=== PATIENT | female | born 1960 ===

== ENCOUNTER 2018-02-21 21:41 | Emergency (ER) | payer OTHER ==
[~2018-02-21] VITALS: Ht 175.3 cm; Wt 95.2 kg
[2018-02-21] MEDS ORDERED: METTREX2.5 PO (23:10)
[2018-02-21] MEDS ORDERED: PRED5 PO (23:10)
[2018-02-21] MEDS ORDERED: PROG100 PO (23:12)
[2018-02-21] MEDS ORDERED: SULF500A PO (23:12)
[2018-02-21] MEDS ORDERED: ESTR2 PO (23:12)
[2018-02-22] MEDS ORDERED: Norvasc5 MG PO (02:17)
== END 2018-02-22 02:45 | disposition home or self-care (01) ==
LOC: ER 21:41
DX: M71.22 Synovial cyst of popliteal space [Baker], left knee (principal); I10 Essential (primary) hypertension; Z91.018 Allergy to other foods
CPT/HCPCS: 93971; 96372; 99284-25; J1885

== ENCOUNTER → 2021-02-27 | Outpatient (CLI) | payer OTHER | END | disposition home or self-care (01) | LOC: LAB 15:49 | DX: M06.9 Rheumatoid arthritis, unspecified (principal) ==

== ENCOUNTER → 2021-06-12 | Outpatient (CLI) | payer OTHER ==
[~2021-06-12] MED LIST: ESTR2 PO; METTREX2.5 PO; Norvasc5 MG PO; PRED5 PO; PROG100 PO; SULF500A PO
== END | disposition home or self-care (01) ==
LOC: LAB SHORT 14:50 → LAB 14:50
DX: M06.9 Rheumatoid arthritis, unspecified (principal)
CPT/HCPCS: 84450